=== PATIENT | female | born 1930 ===

== ENCOUNTER 2018-12-22 10:06 | Outpatient (CLI) | payer OTHER ==
[~2018-12-22] VITALS: Ht 162.6 cm; Wt 78.5 kg
[2018-12-22] MEDS ORDERED: ZANTAC300 MG PO (12:52)
== END 2018-12-22 10:20 | disposition home or self-care (01) ==
LOC: OFIC 805 10:06
DX: J37.0 Chronic laryngitis (principal); R05 Cough; J31.0 Chronic rhinitis